=== PATIENT | female | born 1965 | race Caucasian/White ===

== ENCOUNTER 2024-02-20 08:16 | Emergency (ER) | payer BC, SELFPAY ==
[2024-02-20 08:22] VITALS: BP 125/89; PULSE 106; RESP 20; TEMP 36.2; O2SAT 98
[2024-02-20 08:30] VITALS: BP 125/89; PULSE 106; RESP 20; TEMP 36.2; O2SAT 98
--- NOTE | 2024-02-20 08:37 | ED.URI ---
HPI - URI/Sore Throat General Chief Complaint: Upper Respiratory Infection Stated Complaint: Cough/upper respiratory Time Seen by Provider: 02/20/24 08:37 Source: patient, RN notes reviewed and old records reviewed Mode of arrival: ambulatory Limitations: no limitations History of Present Illness HPI Narrative: 58-year-old female who presents to [facility] with complaints of 2 day history of sinus congestion and drainage and then developed acute cough this morning around 0300 with expectoration of yellow tinged phlegm. Patient reports that she started having chills this morning but has not had fever and has pain to her right ear. Patient reports that she has coughed so much that her lateral chest areas hurt. Patient reports history of COPD with cessation of tobacco one year ago. Patient has been taking Mucinex D and also has been using her inhaler as prescribed. MD elicited complaint: cough, rhinorrhea, nasal congestion and other (right ear) Pertinent past history: COPD Onset (ago): day(s) (2) Consistency: progressively worsening Pain scale (0-10): 5 Description of mucous: yellow Able to tolerate fluids by mouth: Yes Treatments prior to arrival: other (Mucinex D and inhaler) Related Data Home Medications Medication Instructions Recorded Confirmed albuterol sulfate 90 mcg/actuation inhalation 02/20/24 aerosol inhaler lovastatin 40 mg tablet mg 02/20/24 Allergies Allergy/AdvReac Type Severity Reaction Status Date / Time amoxicillin Allergy Unknown Verified 02/20/24 08:30 codeine Allergy Unknown Verified 02/20/24 08:30 Review of Systems Review of Systems: CONSTITUTIONAL: Reports malaise, chills, no sweats, or known fever. EYES: Denies visual changes, redness, or discharge. ENT: Reports rhinorrhea, congestion, sinus pain, right otalgia and sore throat. CARDIOVASCULAR: Denies chest pain, palpitations, or edema. RESPIRATORY: Reports productive cough.? Denies acute dyspnea. GASTROINTESTINAL: Denies abdominal pain, nausea, vomiting, diarrhea SKIN: Denies rash or itching. MUSCULOSKELETAL: Denies myalgia. NEUROLOGIC: Denies headache. All systems reviewed & are unremarkable except as noted in HPI and below PMFSH Past Medical History Medical History (Updated 02/21/24 @ 00:00 by Esdras Reardon) COPD (chronic obstructive pulmonary disease) Elevated serum cholesterol Social History Social History (Updated 02/21/24 @ 12:00 by Maureen Rainey NP) Smoking status: Former smoker Tobacco type: cigarettes Alcohol intake: current Alcohol use details: rare social Substance use type: does not use Living arrangements: with family Gender identity (if verbalized by the patient): Female Comments At time of signature, agree with nursing past medical, surgical, social and family history. There is no relevant family history pertinent to the presenting complaint Exam Narrative: GENERAL:chronic ill-appearing, well-nourished, and in no acute distress. HEAD: Normocephalic EYES: PERRLA, conjunctivae clear ENT: Nares clear, turbinates edematous and erythematous, clear discharge. Mucous membranes moist. TM pearly zavaleta with dull light reflex bilaterally; no tragal tenderness. Oropharynx erythematous without lesions. Tonsils not enlarged and without exudate, no drooling, no hoarseness, no trismus, uvula midline. NECK: Supple. No lymphadenopathy CHEST: Decreased to auscultation, breath sounds equal. No wheezing, rhonchi, rales, or stridor. No respiratory distress, speaks in full sentences.productive cough with expectoration of yellow mucous SAO2 98%on room air lateral chest areas sor from coughing. HEART: Regular rate and rhythm. No murmur heard. SKIN: Warm, dry, no rash. NEURO: Alert and oriented x3. PSYCH: Normal mood and affect Course Course Emergency Course: Patient is aware of diagnosis, understands and agrees to treatment plan.? Anticipatory guidance given.? Patient
== END 2024-02-20 09:14 | disposition home or self-care (01) ==
PROVIDERS: Emergency Provider Registered Nurse
DX: J06.9 Acute upper respiratory infection, unspecified (principal); R05.1 Acute cough; Z87.891 Personal history of nicotine dependence; J44.9 Chronic obstructive pulmonary disease, unspecified; E78.00 Pure hypercholesterolemia, unspecified
CPT/HCPCS: 99213; G0463

== ENCOUNTER 2025-07-22 09:29 | Emergency (ER) | payer BC, SELFPAY ==
--- OUTSIDE RECORDS SUMMARY | 2025-07-19 03:23 | XMS_ITS | Continuity of Care Document ---
Author Organization [employer] Address [address] [place] [address] Phone Care Team Providers Care Demo Event Specialist Name Role Phone Hernandez Moncada DO Unavailable Unavailable Allergies, Adverse Reactions, Alerts Substance Reaction Status Criticality codeine Vomiting Active No Information PENICILLIN Active No Information Medications Medication Instructions Dosage Effective Dates (start - stop) Status Comments Zithromax Z-Ike 250 mg tablet take 2 tablet by oral route every day for 1 day then 1 tablet (250 mg) by oral route once daily for 4 days 500 MG - Active IPRAT-ALBUT 0.5-3(2.5) MG/3 ML USE 1 VIAL VIA NEBULIZER 4 TIMES A DAY - Active WIXELA 500-50 INHUB TAKE 1 PUFF BY MOUTH EVERY 12 HOURS IN THE MORNING AND IN THE EVENING - Active ALBUTEROL HFA (PROVENTIL) INH INHALE 2 PUFFS BY MOUTH EVERY 6 HOURS NEEDED FOR WHEEZING - Active LOVASTATIN 40 MG TABLET TAKE 1 TABLET BY MOUTH EVERY DAY WITH EVENING MEAL - Active Vitamin D3 50 mcg (2,000 unit) capsule take 1 capsule by oral route every day 1 capsule - Active Procedures Procedure Date CBC, INC PLATELETS, NO DIFFERENTIAL ROUTINE VENIPUNCTURE OFFICE [id number] BODY MASS INDEX DOCD SYST BP LT 130 MM HG DIAST BP 80-89 MM HG Pt inelig neg scrn depres PREVENTATIVE-EST: 40-64 BODY MASS INDEX DOCD SYST BP GE 130 - 139MM HG DIAST BP 80-89 MM HG CBC, INC PLATELETS, NO DIFFERENTIAL COMPREHEN METABOLIC PANEL CMP 4 LIPID PANEL VITAMIN D, 25-HYDROXY ROUTINE VENIPUNCTURE DSCHRG MED/CURRENT MED MERGE OFFICE [id number] VITAMIN D, 25-HYDROXY ROUTINE VENIPUNCTURE COMPREHEN METABOLIC PANEL CMP 2 LIPID PANEL VITAMIN D, 25-HYDROXY ROUTINE VENIPUNCTURE Pt inelig neg scrn depres DSCHRG MED/CURRENT MED MERGE OFFICE [id number] BODY MASS INDEX DOCD SYST BP >= 140 MM HG6 IT DIAST BP 80-89 MM HG CBC, INC PLATELETS, NO DIFFERENTIAL COMPREHEN METABOLIC PANEL CMP 2 RBC SED RATE, AUTOMATED THYROID STIMULATION HORMONE(TSH) 2021 VITAMIN D, 25-HYDROXY ROUTINE VENIPUNCTURE OFFICE [id number] BODY MASS INDEX DOCD SYST BP >= 140 MM HG6 IT DIAST BP < 80 MM HG Pt inelig neg scrn depres OFFICE [id number] BODY MASS INDEX DOCD SYST BP >= 140 MM HG6 IT DIAST BP >= 90 MM HG COVID, Flu A, Flu B Pt inelig neg scrn depres CBC, INC PLATELETS, NO DIFFERENTIAL COMPREHEN METABOLIC PANEL CMP 1 LIPID PANEL VITAMIN D, 25-HYDROXY ROUTINE VENIPUNCTURE PREVENTATIVE-EST: 40-64 BODY MASS INDEX DOCD SYST BP GE 130 - 139MM HG DIAST BP 80-89 MM HG SARS-CoV-2/Flu/RSV (all targets) 2020 OFFICE [id number] BODY MASS INDEX DOCD SYST BP GE 130 - 139MM HG DIAST BP < 80 MM HG VITAMIN D, 25-HYDROXY ROUTINE VENIPUNCTURE IMMUN ADMIN (INC PERCUTANEOUS) SINGLE, F IRST INJ FLU VACC 4 LENARD 0.5mL DOSAGE Pt inelig neg scrn depres PREVENTATIVE-EST: BODY MASS INDEX DOCD SYST BP GE 130 - 139MM HG DIAST BP < 80 MM HG COMPREHEN METABOLIC PANEL [facility] 0 LIPID PANEL VITAMIN D, 25-HYDROXY ROUTINE VENIPUNCTURE VITAMIN D, 25-HYDROXY ROUTINE VENIPUNCTURE OFFICE [id number] BODY MASS INDEX DOCD SYST BP GE 130 - 139MM HG DIAST BP < 80 MM HG COMPREHEN METABOLIC PANEL [facility] 9 VITAMIN D, 25-HYDROXY ROUTINE VENIPUNCTURE Pt inelig neg scrn depres COMPREHEN METABOLIC PANEL [facility] 9 LIPID PANEL VITAMIN D, 25-HYDROXY ROUTINE VENIPUNCTURE PREVENTATIVE-EST: 40-64 BODY MASS INDEX DOCD SYST BP >= 140 MM HG6 IT DIAST BP < 80 MM HG IMMUN ADMIN (INC PERCUTANEOUS) SINGLE, F IRST INJ TDAP INTRAMUSCULAR USE Advance Directives Directive Yes / No Effective Date File Name Life Support Not Answered N/A N/A Intubation Not Answered N/A N/A Antibiotics Not Answered N/A N/A IV Fluid Support Not Answered N/A N/A Tube Feed Not Answered N/A N/A Other Directive N/A N/A WARNING:The information contained in this section is historical and is provided for information only and does not constitute a legal document or any assurance that the information is still accurate. Please verify the information with the garcia of the legal document before using it for clinical purposes. Encounters Encounter Description Practice Location Reason(s) For Visit Diagnoses Date Provider Providers Copied on Encounter [employer], [address], [place], [place], [address] , tel: [phone] [facility] No Information 5 Antwan Ng. [address], [place] [address], [place], [place], [address], . tel:[phone] [employer], [address], [place], [place], [address] , tel: [phone] [facility] No Information 5 Antwan Ng. [address], [address], [place], [place], [address], . tel:[phone] [employer], [address], [place], [place], [address] , tel: [phone] [facility] No Information 5 Antwan Ng. [address], [address], [place], [place], [address], . tel:[phone] [employer], [address], [place], [place], [address] , tel: [phone] [facility] Vitamin D deficiency 5 Antwan Ng. [address], [facility] [address], [place], [place], [address], . tel:[phone] Referring Provider: Hernandez Moncada, [address] [facility] [address], [place], [address] . tel:[phone] [email or web address], [address], [place], [place], [address] , [place] tel: [phone] [facility] No Information 5 Antwan Ng. [address], [address], [place], [place], [address], . tel:[phone] [email or web address], [address], [place], [place], [address] , [place] tel: [phone] [facility] No Information 5 Antwan Ng. [address], [address], [place], [place], [address], [place]. tel:[phone] OFFICE WGRSQ-IOE-SO PANDED [facility], [address], [place], [place], [address] , tel: [phone] [facility] cough (chief complaint) COPD exacerbation 4 Andrés Santana. [address], [address], [place], [place], [address], [place]. tel:[phone] Referring Provider: [address] , [place], [address] . tel:[phone] PREVENTATIVE -EST: 40-64 [facility], [address], [place], [place], [address] , tel: [phone] [facility] Chronic Conditions (chief complaint)c hronic conditions (chief complaint) Encounter for screening mammogram for malignant neoplasm of breastMixed hyperlipidemia Vitamin D deficiency, unspecifiedSim ple chronic bronchitisAcut e sinusitisEncou nter for general adult medical examination without abnormal findings 4 Andrés Santana. [address], [address], [place], [place], [address], . tel:[phone] Referring Provider: [address], [place], [address] . tel:[phone] [email or web address], [address], [place], [place], [address] , tel: [phone] [facility] No Information 4 Danielle Robins. [address], [address], [place], [place], [address], . tel:[phone] [facility], [address], [place], [place], [address] , tel: [phone] [facility] No Information 3 Antwan Fallan. [address], [address], [place], [place], [address], [place]. tel:[phone] [email or web address], [address], [place], [place], [address] , tel: [phone] [facility] No Information 3 Antwan Ng. [address], [address], [place], [place], [address], . tel:[phone] OFFICE WJRCW-BUU-YO [facility], [address], [place], [place], [address] , tel: [phone] [facility] Patient encounter (chief complaint) Chronic obstructive pulmonary disease, unspecified COPD type 3 Andrés Santana. [address], [address], [place], [place], [address], . tel:[phone] Referring Provider: Hernandez Moncada, [address] , [place], [address] . tel:[phone] [email or web address], [address], [place], [place], [address] , tel: [phone] [facility] Vitamin D deficiency, unspecified 3 Antwan Ng. [address], [address], [place], [place], [address], . tel:[phone] Referring Provider: Hernandez Moncada, [address], [place], [address] . tel:[phone] [email or web address], [address], [place], [place], [address] , tel: [phone] [facility] Vitamin D deficiency 2 Antwan Ng. [address], [address], [place], [place], [address], . tel:[phone] [facility], [address], [place], [place], [address] , tel: [phone] [facility] Mixed hyperlipidemia Vitamin D deficiency, unspecified 2 Antwan Ng. [address], [address], [place], [place], [address], [place]. tel:[phone] Referring Provider: [address], [place], [address] . tel:[phone] [email or web address], [address], [place], [place], [address] , tel: [phone] [facility] Mixed hyperlipidemia Vitamin D deficiency 2 Antwan Ng. [address], [address], [place], [place], [address], [place]. tel:[phone] OFFICE BXTOH-QIK-IV PANDED [facility], [address], [place], [place], [address] , tel: [phone] [facility] Patient encounter (chief complaint) COPD exacerbationEl evated blood-pressure reading without diagnosis of HTN 2 Andrés Sarah. [address], [address], [place], [place], [address], [place]. tel:[phone] Referring Provider: [address], [place], [address] . tel:[phone] OFFICE LUOWC-XVI-VF TAILED [facility], [address], [place], [place], [address] , tel: [phone] [facility] Chronic Conditions (chief complaint) Mixed hyperlipidemia Vitamin D deficiency, unspecifiedCou ghWeight loss 2 Antwan [address], [address], [place], [place], [address], . tel:[phone] Referring Provider: [address], [place], [address] . tel:[phone] OFFICE KRNOI-EWM-NQ TAILED [facility], [address], [place], [place], [address] , tel: [phone] [facility] cough. (chief complaint) Body mass index [BMI] 19.9 or less, adultRight ear painBody mass index [BMI] 20.0-20.9, adult 2 Andrés Santana. [address], [address], [place], [place], [address], . tel:[phone] Referring Provider: [address], [place], [address] . tel:[phone] [email or web address], [address], [place], [place], [address] , tel: [phone] [facility] No Information 2 Antwan Ng. [address], [address], [place], [place], [address], . tel:[phone] [email or web address], [address], [place], [place], [address] , tel: [phone] [facility] Cough 2 Antwan Ng[address], [address], [place], [place], [address], . tel:[phone] Referring Provider: [address], [place], [address] . tel:[phone] PREVENTATIVE -EST: 40-64 [email or web address], [address], [place], [place], [address] , tel: [phone] [facility] Chronic Conditions (chief complaint) Body mass index (BMI) 21.0-21.9, adultVitamin D deficiency, unspecifiedMix ed hyperlipidemia Encounter for general adult medical examination without abnormal findings 1 Andrés Esther. [address], [address], [place], [place], [address], [place]. tel:[phone] Referring Provider: Hernandez Moncada, [address], [place], [address] . tel:[phone] [facility], [address], [place], [place], [address] , [phone] [facility] Cough 1 Antwan Ng. [address], [address], [place], [place], [address], [place]. tel:[phone] Referring Provider: Hernandez Moncada, [address], [place], [address] . tel:[phone] OFFICE WFACI-NCF-SV PANDED [facility], [address], [place], [place], [address] , [phone] [facility] skin redness (chief complaint) Acute sinusitisSpide r bite wound, accidental or unintentional, initial encounter 0 Andrés Esther. [address], [address], [place], [place], [address], [place]. tel:[phone] Referring Provider: [address], [place], [address] . tel:[phone] [email or web address], [address], [place], [place], [address] , [place] tel:[phone] [facility] Vitamin D deficiency 0 Antwan Ng. [address], [address], [place], [place], [address], [place]. tel:[phone] Referring Provider: [address], [place], [address] . tel:[phone] [email or web address], [address], [place], [place], [address] , tel: [phone] [facility] Vitamin D deficiency 0 Antwan Ng. [address], [address], [place], [place], [address], [place]. tel:[phone] PREVENTATIVE -EST: 40-64 [facility], [address], [place], [place], [address] , tel: [phone] [facility] Chronic Conditions (chief complaint) Encntr screen mammogram for malignant neoplasm of breastMixed hyperlipidemia Vitamin D deficiency, unspecifiedEnc ntr for general adult medical exam w/o abnormal findings 0 Antwan Ng. [address], [address], [place], [place], [address], [place]. tel:[phone] Referring Provider: [address], [place], [address] . tel:[phone] OFFICE HUBEB-NZR-BZ PANDED [facility], [address], [place], [place], [address] , tel: [phone] [facility] Congestion (chief complaint) Acute non-recurrent maxillary sinusitisVitam in D deficiency 9 Antwan Ng. [address], [address], [place], [place], [address], [place]. tel:[phone] Referring Provider: [address], [place], [address] . tel:[phone] [email or web address], [address], [place], [place], [address] , [place] tel:[phone] [facility] Vitamin D deficiency, unspecifiedAbn ormal finding of blood chemistry, unspecified 9 Antwan Ng. [address], [address], [place], [place], [address], [place]. tel:[phone] Referring Provider: [address], [place], [address] . tel:[phone] [email or web address], [address], [place], [place], [address] , tel: [phone] [facility] Abnormal mammogram 9 Antwan Ng. [address], [address], [place], [place], [address], [place]. tel:[phone] PREVENTATIVE -EST: 40-64 [employer], [address], [place], [place], [address] , tel: [phone] [facility] Chronic Conditions (chief complaint)s easonal allergies (chief complaint) Mixed hyperlipidemia Vitamin D deficiency, unspecifiedEnc ounter for general adult medical examination without abnormal findingsSeason al allergic rhinitis, unspecified triggerEncntr screen mammogram for malignant neoplasm of breast 9 Andrés Esther. [address], [address], [place], [place], [address], [place]. tel:[phone] Referring Provider: Hernandez Moncada [address], [place], [address] . [phone] [employer], [address], [place], [place], [address] , [place] tel: [phone] [facility] Vitamin D deficiencyAbno rmal blood chemistry 8 Antwan Ng. [address], [address], [place], [place], [address], [place]. tel:[phone] [employer], [address], [place], [place], [address] , [place] tel: [phone] [facility] Mixed hyperlipidemia Vitamin D deficiency, unspecifiedAdu lt general medical exam 8 Antwan Ng. [address], [address], [place], [place], [address], [place]. tel:[phone] Referring Provider: [address], [place], [address] . tel:[phone] [employer], [address], [place], [place], [address] , tel: [phone] [facility] No Information 8 Antwan Ng. [address], [address], [place], [place], [address], [place]. tel:[phone] Family History Family Member Type Diagnosis Age At Onset Father Problem (finding) Cardiovascular disease Mother Problem (finding) Cardiovascular disease Immunizations Vaccine Date Status Comments COVID-19, mRNA, LNP-S, PF, 5 0 mcg/0.5 mL administered Source: Other Provid er Influenza, MDCK, trivalent, PF administer ed Source: Other Provider RSV, recombinant, protein subunit RSVpreF, adjuvant reconstituted, 0.5 mL, PF administered Source: Other Provider influenza, injectable, quadrivalent, preservative free administered Source: Other Provid er COVID-19, mRNA, LNP-S, PF, 5 0 mcg/0.5 mL administered Source: Other Provid er J&J COVID/Adenovirus Vaccine [id number] viral particles/0.5mL administered Source: Oth er Registry J&J COVID/Adenovirus Vaccine [id number] viral particles/0.5mL administered Note: [facility] [place] ; Source: Other Registry Fluzone Quad, split virus, 0.5mL dosage administered Source: New Immuniza tion Record Fluzone Quad, split virus, 0.5mL dosage administered Source: Other Provid er Tdap administered Source: New Imm unization Record Payers Payer name Insurance type Covered constitution party ID Authoriza tion(s) BCBS ACCESS CHOICE BL [id number] BCBS ACCESS BL [id number] BCBS ACCESS BL [id number] Social History Type Description Quantity Date Captured Comments Alcohol Use Details Unknown Caffeine Use Details Unknown Tobacco Use Status No Information Smoking Status No Information Sex Female Gender Identity Female Chief Complaint And Reason For Visit No Information Reason For Referral Reason For Referral No Information Plan Of Treatment Date Type Action Status Goal Dietary manageme nt education, guidance, and counseling completed Goal Dietary manageme nt education, guidance, and counseling completed Goal Tobacco cessation counseling completed Goal Tobacco cessation counseling completed Referral Referred To: [id number] [place], [id number] Ordered: SCREENING MAMMOGRAM (CAD) ordered Referral Ordered: X-ray of facial sinuses ordered Referral Ordered: XR maxillary sinus ordered Referral Ordered: Chest Xray, 2 Views ordered Referral Ordered: PA and lateral CXR ordered Referral Referred To: [address] [place], [place], [id number] Ordered: Mammogram breast right diagnostic Right breast ordered Referral Referred To: [address] [place], [place], [id number] Ordered: Limited ultrasound of right breast Right breast ordered Referral Ordered: SCREENING MAMMOGRAM (CAD) Bilateral breast ordered Future Order: Radiology Order PA and lateral CXR ([id number]), Sent on: Sent Future Order: Radiology Order X- ray of facial sinuses ([id number]), Sent on: Sent Future Order: Radiology Order XR maxillary sinus ([id number]), Sent on: Sent Future Order: Radiology Order Ch est Xray, 2 Views ([id number]), Sent on: Sent History Of Present Illness Encounter Date Complaint History Of Prese nt Illness cough Here today for a cough that is lingering, feels it is coming from the throat, no fever/chills, breathing at baseline. Taking mucinex dm. Chronic Conditions *See Chronic Conditions HPI chronic conditions *See Chronic Conditions HPI Patient encounter Chief complain t: ER follow up.03/12/23 went to ER for chest congestion, sinus congestion. She has COPD and was diagnosed with COPD exacerbation. She denies being sob or wheezing. She feels her allergies arent controlled this year. She was working outside and in the [employer] department and she thinks those are her triggers. She is no longer smoking. Today she finished her zpak and medrol and is feeling well. She has difficulty affording her inhalers. She does daily netti pot. Has a hard time taking otc antihistamines because they keep her awake. Patient encounter Chief complain t: ER follow up.Here for ER follow up. Presented to ER with sob. Diagnosed with COPD exacerbation and discharged home on medrol dose pack. She states she quit smoking last week. She is breathing better and not wheezing as much but still not feeling well. She has bilat ear pressure, productive cough and sinus congestion. She has some chills but no fever. She is using advair bid. Chronic Conditions *See Chronic Conditions HPI cough. The symptoms beg an 1 day ago. The symptoms are reported as being mild. The symptoms occur constantly. this am woke up with right earache, right sided sore throat and cough with chest congestion. No fever/chills. im congested. Chronic Conditions *See Chronic Conditions HPI skin redness R. Wrist-Round r ed itchy patch x 4-5 days, woke up with it there.also with sinus congestion, right ear fullness and frontal morales. Recently had neg covid test. Does daily netti pot. Chronic Conditions *See Chronic Conditions HPI Congestion Notes that sinus es and ears have been clogged/full. Notes sinus pressure for a week or two. Last day feels congestion in her chest, cough. No fevers/chills. Taking mucinex and sudafed sinus- no improvement Chronic Conditions *See Chronic Conditions HPI Chronic Conditions seasonal allergies seasonal mina rgies, doesnt take anything otc. Awoke this am with sinus congestion and right ear fullness. Functional Status Date Functional Assessmen t No Information Instructions Date Instruction Additional Infor avis sample of spencer porter- to take as directed-go back to [facility] when donept found tremendous benefit from duoneb- she would benefit from a nebulizer at homeremain hydrated Related to COPD exacerbation finish medrolcontinu e inhalers as directed Related to Simple chronic bronchitis Discussed preventati ve care with the patient and reviewed risk factors. Will continue to monitor and assess cardiovascular risk factors (hypertension, hyperlipidemia, diabetes, and smoking status). Reviewed and recommended needed injections Assessed need and appropriateness of cancer screening recommendations per USPTF guidelines. Related to Encounter for general adult medical examination without abnormal findings We encouraged that y ou treat your symptoms. Get lots of rest and drink plenty of liquids, Suck on cough drops or hard candy, Take ptli-fzh-uotirvc cough and cold medicines- such as mucinex dm and/or flonase OTC, Breathe in warm, moist air, such as in the shower or from a humidifier, Take a pain-relieving medicine for symptoms like headache, muscle aches, or joint pain. I have sent an antibiotic to your pharmacy. Please take as directed. Call in 48-72 hours if no improvement, new symptoms develop, or current symptoms worsen. Related to Acute sinusitis labs today. Related to Vitam in D deficiency, unspecified Cholesterol is a sub stance that is found in the blood. Everyone has some. It is needed for good health. The problem is, people sometimes have too much cholesterol. Compared with people with normal cholesterol, people with high cholesterol have a higher risk of heart attacks, strokes, and other health problems. The higher your cholesterol, the higher your risk of these problems. You can lower your cholesterol some by:Avoiding red meat, butter, fried foods, cheese, and other foods that have a lot of saturated fatLosing weight (if you are overweight)Being more active Related to Mixed hyperlipidemia continue nel ham[place], has PRN albuterol- educated on use, and add Singulair. politely declined a spirometry today. Related to Chronic obstructive pulmonary disease, unspecified COPD type monitor at homegoal <140/90diet and exercise Related to Elevated blood-pressure reading without diagnosis of HTN add spiriva dailyadd as needed albuterolcontinue advairfinish medrol Related to COPD exacerbation Weight loss could be explained with dietary changes, as being off work has allowed her to gain 2 lbs. Will check labs/imaging. To stay UTD with cancer screening Related to Weight loss Will check Xray of c hest/sinus- advised to quit smoking. Related to Cough Will check labs Related to Mixed hyperlipidemia Will check labs Related to Vitam in D deficiency, unspecified We encouraged that y ou treat your symptoms. Get lots of rest and drink plenty of liquids, Suck on cough drops or hard candy, Take [id number] cough and cold medicines- such as mucinex dm and/or flonase OTC, Breathe in warm, moist air, such as in the shower or from a humidifier, Take a pain-relieving medicine for symptoms like headache, muscle aches, or joint pain. I have sent an antibiotic to your pharmacy. Please take as directed. Call in 48-72 hours if no improvement, new symptoms develop, or current symptoms worsen.recommend covid swab at home- if positive follow cdc guidelines Related to Right ear pain Dietary management e ducation, guidance, and counseling Related to Body mass index (BMI) 19 or less, adult recommend womans onc e a day multivitamin Related to Vitamin D deficiency, unspecified Discussed age approp riate screening tests and immunizations. Related to Encounter for general adult medical examination without abnormal findings labs today Cholester ol is a substance that is found in the blood. Everyone has some. It is needed for good health. The problem is, people sometimes have too much cholesterol. Compared with people with normal cholesterol, people with high cholesterol have a higher risk of heart attacks, strokes, and other health problems. The higher your cholesterol, the higher your risk of these problems. You can lower your cholesterol some by:Avoiding red meat, butter, fried foods, cheese, and other foods that have a lot of saturated fatLosing weight (if you are overweight)Being more active Related to Mixed hyperlipidemia Dietary management e ducation, guidance, and counseling Related to Body mass index (BMI) 21.0-21.9, adult bactrim sentkeep brody an and monitor size Related to Spider bite wound, accidental or unintentional, initial encounter Discussed preventati ve care. Can add flonase and claritin for sinus issues Related to Encntr for general adult medical exam w/o abnormal findings Will check labs- no changes toda y Related to Vitamin D deficiency, unspecified Continue meds, no new changes Re lated to Mixed hyperlipidemia Will pace on abx and have her take otc flonase. CAll if persists Related to Acute non-recurrent maxillary sinusitis add flonase Related to Seaso nal allergic rhinitis, unspecified trigger recommend otc supple mentation, please see handout. Related to Vitamin D deficiency, unspecified Cholesterol is a sub stance that is found in the blood. Everyone has some. It is needed for good health. The problem is, people sometimes have too much cholesterol. Compared with people with normal cholesterol, people with high cholesterol have a higher risk of heart attacks, strokes, and other health problems. The higher your cholesterol, the higher your risk of these problems. You can lower your cholesterol some by:Avoiding red meat, butter, fried foods, cheese, and other foods that have a lot of saturated fatLosing weight (if you are overweight)Being more active Related to Mixed hyperlipidemia Assessments Type Assessment Date No Information Patient Care Teams Name Effective Dates (start - stop) Status Members No Information
[2025-07-22 09:34] VITALS: BP 166/64; PULSE 97; RESP 16; TEMP 36.4; O2SAT 99
--- OUTSIDE RECORDS SUMMARY | 2025-07-22 09:34 | XMS_ITS | Clinical Summary ---
Author Organization [facility] Address [address] [place] [address] Phone Care Team Providers Care Tube Fitter Name Role Phone Hernandez Moncada DO Primary Care Provider [phone] Allergies Active Allergy Reactions Criticality Noted Date Comments Amoxicillin Swelling 08/23/2022 Codeine Vomiting 08/23/2022 Medications methylPREDNISol one (MEDROL DOSPACK) 4 MG Tablet Therapy Pack See product package insert for dosing schedule 21 Tablet 2 Active albuterol 108 (90 Base) MCG/ACT Aerosol Solution take 2 Puffs by inhalation every 6 hours as needed for Wheezing. 18 g 2 3 Active Social History Tobacco Use Types Packs/Day Years Used Date Smoking Tobacco: Former Smokeless Tobacco: Never Tobacco Cessation:Counseling Given: Not Answered Comments No Sex and Gender Information Value Date Recorded Sex Assigned at Not on file Legal Sex Female 8:09 PM CDT Gender Identity Not on file Sexual Orientation Not on file Last Filed Vital Signs Vital Sign Reading Time Taken Comments Blood Pressure 132/78 03/12/2023 4:03 PM CDT Pulse 84 03/12/2023 4:03 PM CDT Temperature 36.9 C (98.5 F) 03/12/2023 1:12 PM CDT Respiratory Rate 18 03/12/2023 4:03 PM CDT Oxygen Saturation 97% 03/12/2023 4:03 PM CDT Inhaled Oxygen Concentration - - Weight 54.4 kg (120 lb) 03/12/2023 1:12 PM CDT Height 160 cm (5' 3) 03/12/2023 1:12 PM CDT Body Mass Index 21.26 03/12/2023 1:12 PM CDT Plan of Treatment Health Maintenance Due Date Last Done Comments Hepatitis C Virus (HCV) Screening 1963 Cologuard 2008 Colonoscopy 2008 Colorectal Cancer Screening 2008 Immunochemical Fecal Occult Blood 2008 Pneumococcal Immunization (50+ years) (1 of 1 - PCV) 2013 Zoster Immunization (1 of 2) 2013 Influenza Immunization (#1) 06/18/202507/18, 08/01/2020, 08/01/2019, Additional history exists SARS-COV-2 Immunization ( season) 2025 07/27/2022, 08/14/2021, 12/26/2020 Respiratory Syncytial Virus (RSV) Immunization (Adult) (1 - 1-dose 75+ series) 2038 DTaP/Tdap/Td Immunization Discontinued 03/24/2019 TdaP Immunization Completed 03/24/2019 Mammogram Discontinued 07/21/2021, 10/2019, 04/07/2019 Hepatitis B Immunization Aged Out No longer eligible based on patient's age to complete this topic Human Papillomavirus (HPV) Immunization Aged Out No longer eligible based on patient's age to complete this topic Meningococcal Immunization (ACWY) Aged Out No longer eligible based on patient's age to complete this topic Rotavirus Immunization Aged Out No lo nger eligible based on patient's age to complete this topic Insurance [employer] Care Teams Tube Fitter Relationship Specialty [place] [address] [address] PCP - General 08/23/22
--- OUTSIDE RECORDS SUMMARY | 2025-07-22 09:34 | XMS_ITS | Clinical Summary ---
Author Organization [facility] Address [address] [place] [address] Care Team Providers Care Nursing Department Chairperson Name Role Phone Hernandez Moncada DO Primary Care Provider [phone] Allergies Active Allergy Reactions Criticality Noted Date Comments Amoxicillin Rash,Itching Low 04/14/2019 Medications lovastatin (MEVACOR) 40 mg tablet Take 1 Tablet by mouth daily at bedtime. 06/20/2021 Active Active Problems Problem Noted Date Diagnosed Date Hypercholesterolemia 04/14/2019 Family History Medical History Relation Name Comments Heart Disease Father Jayson No Known Problems Maternal Grandfather No Known Problems Maternal Grandmother Heart Disease Mother Tabatha No Known Problems Paternal Grandfather No Known Problems Paternal Grandmother Relation Name Status Comments Father Jayson Maternal Grandfather Maternal Grandmother Mother Tabatha Paternal Grandfather Paternal Grandmother Social History Tobacco Use Types Packs/Day Years Used Date Smoking Tobacco: Every Day Cigarettes 0.3 25 Smokeless Tobacco: Never Alcohol Use Standard Drinks/Week Comments Never 0 (1 standard drink = 0.6 oz pur e alcohol) Social Connections Answer Date Recorded In a typical week, how many times do you talk on the phone with family, friends, or neighbors? More than three times a week 04/14/2019 How often do you get togethe r with friends or relatives? More than three times a week 04/14/2019 How often do you attend chur ch or sikhism services? Never 04/14/2019 Do you belong to any clubs o r organizations such as sabianist groups, unions, fraternal or athletic groups, or school groups? No 04/14/2019 How often do you attend meet ings of the clubs or organizations you belong to? Never 04/14/2019 Are you , , di vorced, , never , or living with a partner? 04/14/2019 Financial Resource Strain Answer Date R ecorded How hard is it for you to pa y for the very basics like food, housing, medical care, and heating? Not hard at all 04/14/2019 Food Insecurity Answer Date Recorded Within the past 12 months, y ou worried that your food would run out before you got the money to buy more. Never true 04/14/20 19 Within the past 12 months, t he food you bought just didn't last and you didn't have money to get more. Never true 04/14/2019 Transportation Needs Answer Date Record ed In the past 12 months, has l ack of transportation kept you from medical appointments or from getting medications? No 03/19 In the past 12 months, has l ack of transportation kept you from meetings, work, or from getting things needed for daily living? No 04/14/2019 Comments No Sex and Gender Information Value Date Recorded Sex Assigned at Not on file Legal Sex Female 9:45 PM CDT Gender Identity Not on file Sexual Orientation Not on file Last Filed Vital Signs Vital Sign Reading Time Taken Comments Blood Pressure 104/64 07/16/2021 8:48 AM CDT Pulse - - Temperature - - Respiratory Rate - - Oxygen Saturation - - Inhaled Oxygen Concentration - - Weight 55.4 kg (122 lb 3.2 oz) 07/16/2021 8:48 A M CDT Height 157.5 cm (5' 2) 07/16/2021 8:48 AM CDT Body Mass Index 22.35 07/16/2021 8:48 AM CDT Plan of Treatment Health Maintenance Due Date Last Done Comments DTAP/TDAP/TD VACCINES (1 - Tdap) 1982 HPV/Cotest (21-29) 1984 CERVICAL CANCER SCREENING 1993 HPV/Cotest (30-65) 1993 PAP SMEAR 1993 COLORECTAL SCREENING 2008 Colorectal Cancer Screening 2008 FIT-DNA Q 3 years 2008 FIT/FOBT Q 1 year 2008 Flex Sig/CT Colonography Q 5 years 2008 ZOSTER VACCINE (1 of 2) 2013 BREAST CANCER SCREENING 07/21/2022 07/21/20 21, 07/18/2020, 04/21/2019, Additional history exists INFLUENZA VACCINE (#1) 2025 08/09/2017 RSV VACCINE (60+ or ) (1 - 1-dose 75+ series) 2038 Procedures Procedure Name Priority Date/Time Associated Diagnosis Comments MAMMO 3D TERESSA SCREEN BILAT W OR WO CAD Routine 07/21/2021 7:24 AM CDT Breast cancer screening by mammogram from Last 3 Months or Most Recently Relevant to Health Maintenance Results * MAMMO SCRN BILAT 3D TERESSA W OR WO CAD (07/21/2021 7:24 AM CDT) Anatomical Region Laterality Modality Breast Bilateral Mammography 07/21/2021 7:24 AM CDT Impressions 07/21/2021 9:39 AM CDT IMPRESSION: No mammographic evidence of malignancy. RECOMMENDATIONS: Routine screening mammogram in one year. DICTATION LOCATION: [facility] Narrative 07/21/2021 9:39 AM CDT BILATERAL FULL-FIELD DIGITAL SCREENING MAMMOGRAM WITH CAD WITH 3D TOMOSYNTHESIS DATE: 07/21/2021 7:24 AM HISTORY: Routine screening. TECHNIQUE: Full-field digital craniocaudal and mediolateral oblique projections of both breasts were obtained. Low-dose full-field digital breast tomosynthesis examination was performed with 2D and 3D acquisitions. Examination is read in conjunction with computer aided detection. COMPARISON: 2019, 2018, 2017, and 2016. BREAST COMPOSITION: Heterogeneously dense, which limits the sensitivity of mammography. FINDINGS: No suspicious mass, suspicious microcalcifications, or architectural distortion in either breast is identified. Since the prior study, there has been no significant interval change. The computer aided diagnosis detects no significant abnormality. OVERALL FINAL ASSESSMENT: BI-RADS CATEGORY 1 : Negative Hernandez Moncada DO MAMMO ORDERABLES Final Result from Last 3 Months or Most Recently Relevant to Health Maintenance Insurance [employer] BLUE ACCESS/TRUE BLUE PPO Care Teams Nursing Department Chairperson Relationship Specialty [place] [address] [place] [address] [employer] [id number] PCP - General Internal Medicine 03/23/19
--- NOTE | 2025-07-22 09:44 | ED_ITS ---
HPI - URI/Sore Throat General Chief Complaint: Upper Respiratory Infection Stated Complaint: Cough/Dizziness/Sore Throat/Headache Time Seen by Provider: 07/22/25 09:44 Source: patient and RN notes reviewed Mode of arrival: ambulatory Limitations: no limitations History of Present Illness HPI Narrative: 59-year-old female presents Express Care complaining of upper respiratory symptoms for approximately 2 weeks. Patient said few days ago she called her primary care office she thought she was developing bronchitis and she was prescribed a Z-Ike. Patient says she has 1 does see pack left. Since then the patient reports worsening congestion, cough, nasal drainage, sore throat, and a right earache. Patient denies any chest pain, difficulty breathing, shortness of breath, nausea vomiting, diarrhea, fevers, aches, chills, her symptoms. Patient has a history of COPD uses her inhalers as needed. Related Data Home Medications ?Medication ?Instructions ?Recorded ?Confirmed ?Last Taken ?Type albuterol sulfate 90 mcg/actuation inhalation 02/20/24 Unknown History aerosol inhaler lovastatin 40 mg tablet mg 02/20/24 Unknown History fluticasone 500 mcg-salmeterol 50 inhalation 07/22/25 Unknown History mcg/dose blistr powdr for inhalation ipratropium 0.5 mg-albuterol 3 mg ml inhalation Unknown History (2.5 mg base)/3 mL nebulization soln Allergies Allergy/AdvReac Type Severity Reaction Status Date / Time Penicillins Allergy Unknown Unknown Verified 07/22/25 09:41 amoxicillin Allergy Unknown Verified 07/22/25 09:41 codeine Allergy Unknown Verified 07/22/25 09:41 Review of Systems Review of Systems: CONSTITUTIONAL: Denies fever, chills, body aches, or sweats. EYES: Denies visual changes, redness, or discharge. ENT: Positive for rhinorrhea, congestion, sore throat, or otalgia. CARDIOVASCULAR: Denies chest pain, palpitations, or edema. RESPIRATORY: Positive for cough. Negative for dyspnea or wheezing. GASTROINTESTINAL: Denies abdominal pain, nausea, vomiting, or diarrhea. GENITOURINARY: Denies dysuria or hematuria. SKIN: Denies rash or itching. MUSCULOSKELETAL: Denies back pain, joint pain, or myalgia. NEUROLOGIC: Denies headache, numbness, or weakness. PSYCHIATRIC: Denies anxiety or depression. All other systems reviewed are negative, except as documented in HPI. [facility] Past Medical History Medical History Elevated serum cholesterol COPD (chronic obstructive pulmonary disease) Social History Social History Smoking status: Former smoker Tobacco type: cigarettes Alcohol intake: current Alcohol use details: rare social Substance use type: does not use Living arrangements: with family Gender identity (if verbalized by the patient): Female Comments At the time of my signature, I reviewed and agree with the nursing past medical, surgical, social, and family history. There is no relevant family history pertinent to the patient complaint. Exam Narrative: GENERAL: This is a well-nourished, well-developed adult, in no apparent distress. They are non ill-appearing, nontoxic appearing. HEAD: normocephalic, atraumatic. EYES: Sclera clear/white. Vision is grossly intact. Conjunctiva normal bilaterally. Extraocular movements intact. EARS: External ears normal, auditory canals clear and without drainage, TMs without erythema or perforation. Hearing grossly intact. NOSE: External nose normal with no obvious nasal discharge, nasal turbinates erythematous, no rhinorrhea. THROAT: Mucous membranes moist, posterior pharynx erythematous without exudate. Uvula is midline. Postnasal drip present. NECK: Neck supple, non-tender without lymphadenopathy, masses or thyromegaly. CARDIOVASCULAR: Regular rate and rhythm without murmurs, gallops, or rubs. RESPIRATORY: Clear to auscultation. Breath sounds equal bilaterally. No wheezes, rales, or rhonchi. SKIN: warm, Dry, intact with no suspicious lesions or rash, good texture and turgor. NEURO: awake, alert, and oriented to person, place and time. There were no obvious focal neurologic abnormalities. EXTREMITIES: No joint tenderness, effusion, or edema noted. BACK: Nontender without deformity. Course Course Emergency Course: Portions of this record may have been created with voice recognition software Level of Care: Express Care Visit Vital Signs Vital signs: Vital Signs Temperature 97.6 F 07/22/25 09:34 Pulse Rate 97 07/22/25 09:34 Respiratory Rate 16 07/22/25 09:34 Blood Pressure 166/64 H 07/22/25 09:34 Pulse Oximetry 99 07/22/25 09:34 Oxygen Delivery Room Air 07/22/25 09:34 Temperature 97.6 F 07/22/25 09:34 Pulse Rate 97 07/22/25 09:34 Respiratory Rate 16 07/22/25 09:34 Blood Pressure 166/64 H 07/22/25 09:34 Pulse Oximetry 99 07/22/25 09:34 Oxygen Delivery Room Air 07/22/25 09:34 MDM - URI/Sore Throat MDM Narrative Medical decision making narrative: Patient given zpak with no improvement of symptoms. Patient reports worsening of symptoms. Likely zpak ineffective, patient like has a bacterial sinusitis. Will treat with cefdinir. Will also give benzonatate as needed for cough. Discussed physical exam findings. Advised supportive measures and signs/symptoms to go to the ER. Pt is appropriate for outpt treatment and f/u. Differential Diagnosis Differential diagnosis: Likely upper respiratory infection, sinusitis, viral infection, bronchitis, pharyngitis and other (COPD exacerbation,) Discharge Plan Discharge Clinical Impression: Sinusitis Patient Disposition: Home Condition: Stable Instructions: Antibiotic Form, Sinusitis (ED) Additional Instructions: Take the antibiotics as directed and complete the course even if you start to feel better. You may use a Neti pot saline rinse 3 times a day with lukewarm distilled water Continue to take Tylenol or Motrin for pain. Follow instructions on the bottle. Take benzonatate tablets as needed for cough. Use a humidifier or vaporizer at night. Drink plenty of water. 8-10 glasses per day. Use flonase 2 times per day for 5 days then as needed Take mucinex 2 times per day and be sure to take with 8oz of water. Follow up with Primary provider in 3-5 days Please go to the ER if he develops any difficulty breathing, chest pains, nausea, vomiting, worsening symptoms, or any other concerns Patient Language: Israeli Prescriptions: New cefdinir 300 mg capsule 300 mg PO Q12H 7 Days Qty: 14 0RF benzonatate 100 mg capsule 100 mg PO TID PRN (Reason: cough) Qty: 20 0RF No Action lovastatin 40 mg tablet albuterol sulfate 90 mcg/actuation HFA aerosol inhaler INHALATION azithromycin 250 mg tablet See Rx Instructions .ROUTE .COMPLEX Qty: 6 0RF Rx Instructions: For 250 mg dose pack: take 500 mg today (day 1), then 250 mg for 4 days (days 2-5) ipratropium-albuterol 0.5 mg-3 mg(2.5 mg base)/3 mL solution for nebulization INHALATION fluticasone propion-salmeterol 500-50 mcg/dose blister with device INHALATION Follow-up/Referrals: PHYSICIAN NOT ON STAFF,NONSTAFF [Primary Care Provider] Stand Alone Forms: Work/School Release IP Time of Disposition: 09:54
== END 2025-07-22 10:00 | disposition home or self-care (01) ==
DX: J32.9 Chronic sinusitis, unspecified (principal); F17.210 Nicotine dependence, cigarettes, uncomplicated; J44.9 Chronic obstructive pulmonary disease, unspecified; E78.00 Pure hypercholesterolemia, unspecified
CPT/HCPCS: 99213; G0463